=== PATIENT | male | born 1965 | race Hispanic/Latino ===

== ENCOUNTER 2017-02-09 15:47 | Emergency (ER) | payer MEDICAID ==
[2017-02-09 15:50] VITALS: BP 125/88; PULSE 100; RESP 20; TEMP 97.2; O2SAT 100
--- NOTE | 2017-02-09 16:39 | C.PDOC ---
History Of Present Illness 52 year old male presents to he ED requesting alcohol detox. Patient admits daily alcohol use. He has no physical complaints at this time. States that he was at [facility] earlier today for possible seizure but eloped prior to any treatment or evaluation. Chief Complaint (Nursing): Medical Clearance History Per: Patient History/Exam Limitations: no limitations Reports Recently: Seen In ED Past Medical History Reviewed: Historical Data, Nursing Documentation, Vital Signs Vital Signs: Last Vital Signs Temp 97.2 F L 02/09/17 15:49 Pulse 100 H 02/09/17 15:49 Resp 20 02/09/17 15:49 BP 125/88 02/09/17 15:49 Pulse Ox 100 02/09/17 16:39 - Medical History PMH: Anxiety, Depression, HIV, Seizures Family History: States: No Known Family Hx - Social History Hx Alcohol Use: Yes Hx Substance Use: No Review Of Systems Psych: Positive for: Withdrawal, Other (Alcohol abuse ) Physical Exam - Physical Exam Appears: Non-toxic, No Acute Distress Skin: Normal Color, Warm, Dry Head: Atraumatic, Normacephalic Eye(s): bilateral: Normal Inspection, PERRL, EOMI Oral Mucosa: Moist Cardiovascular: Rhythm Regular, No Murmur Respiratory: Normal Breath Sounds (clear to ascultation bilaterally ) Gastrointestinal/Abdominal: Soft, No Tenderness Extremity: No Pedal Edema, No Deformity Neurological/Psych: Oriented x3, Normal Speech ED Course And Treatment - Laboratory Results Result Diagrams: 02/09/17 16:58 O2 Sat by Pulse Oximetry: 100 Disposition - Disposition Referrals: [facility] Cristina Galvez, [Non-Staff] - Disposition: HOME/ ROUTINE Disposition Time: 17:20 Condition: GOOD Additional Instructions: Thank you for letting us take care of you today. Your provider was Dr. Coreas. The emergency medical care you received today was directed at your acute symptoms. If you were prescribed any medication, please fill it and take as directed. It may take several days for your symptoms to resolve. Return to the Emergency Department if your symptoms worsen, do not improve, or if you have any other problems. Please contact your doctor or call one of the physicians/clinics you have been referred to that are listed on the Patient Visit Information form that is included in your discharge packet. Bring any paperwork you were given at discharge with you along with any medications you are taking to your follow up visit. Our treatment cannot replace ongoing medical care by a primary care provider (PCP) outside of the emergency department. Thank you for allowing the [facility] team to be part of your care today. Cut down on the amount of alcohol you consume daily. Follow up with your doctor in 2-3 days for re-evaluation and further management. Instructions: Abuse of Alcohol (ED) Forms: [employer] (Ukrainian) - Clinical Impression Clinical Impression: Alcohol intoxication - Scribe Statement The provider has reviewed the documentation as recorded by the Gris Aguiar Provider Attestation: All medical record entries made by the Huongibe were at my direction and personally dictated by me. I have reviewed the chart and agree that the record accurately reflects my personal performance of the history, physical exam, medical decision making, and the department course for this patient. I have also personally directed, reviewed, and agree with the discharge instructions and disposition.
[2017-02-09 17:05] LABS: BASO % 0.4 % (0.0-2.0); EOS # 0.1 K/uL (0.0-0.7); EOS % 1.9 % (0.0-4.0); HEMATOCRIT 43.1 % (35.0-51.0); LYMPH # 1.8 K/uL (1.0-4.3); LYMPH % 40.5 % (20.0-40.0); MEAN CORPUSCULAR HEMOGLOBIN 31.7 pg (27.0-31.0); MEAN CORPUSCULAR HGB CONC 34.1 g/dL (33.0-37.0); MEAN PLATELET VOLUME 6.9 fL (7.2-11.7); MONO # 0.5 K/uL (0.0-0.8); MONO % 11.6 % (0.0-10.0); NRBC % 0.1 % (0.0-2.0); RED CELL DISTRIBUTION WIDTH 14.5 % (11.5-14.5); WHITE BLOOD COUNT 4.5 K/uL (4.8-10.8)
--- NOTE | 2017-02-09 17:18 | CT ---
PROCEDURE: CT HEAD WITHOUT CONTRAST. HISTORY: r/o ICH COMPARISON: None available. TECHNIQUE: Axial computed tomography images were obtained through the head/brain without intravenous contrast. Radiation dose: Total exam DLP = 1037.69 mGy-cm. This CT exam was performed using one or more of the following dose reduction techniques: Automated exposure control, adjustment of the mA and/or kV according to patient size, and/or use of iterative reconstruction technique. FINDINGS: HEMORRHAGE: No intracranial hemorrhage. BRAIN: No mass effect or edema. Mild volume loss is noted. VENTRICLES: Unremarkable. No hydrocephalus. CALVARIUM: Unremarkable. PARANASAL SINUSES: Unremarkable as visualized. No significant inflammatory changes. MASTOID AIR CELLS: Unremarkable as visualized. No inflammatory changes. OTHER FINDINGS: None. IMPRESSION: Normal CT of the Head.
== END 2017-02-09 17:36 | disposition home or self-care (01) ==
LOC: C.ER 15:47
DX: F10.120 Alcohol abuse with intoxication, uncomplicated (principal); Y90.9 Presence of alcohol in blood, level not specified

== ENCOUNTER 2017-02-12 22:02 | Emergency (ER) | payer MEDICAID ==
[2017-02-12 22:54] LABS: BASO # 0.1 K/uL (0.0-0.2); BASO % 1.8 % (0.0-2.0); EOS # 0.1 K/uL (0.0-0.7); HEMATOCRIT 38.7 % (35.0-51.0); LYMPH # 1.4 K/uL (1.0-4.3); LYMPH % 41.4 % (20.0-40.0); MEAN CELL VOLUME 93.4 fL (80.0-94.0); MEAN CORPUSCULAR HEMOGLOBIN 31.9 pg (27.0-31.0); MEAN CORPUSCULAR HGB CONC 34.2 g/dL (33.0-37.0); MEAN PLATELET VOLUME 7.1 fL (7.2-11.7); MONO # 0.4 K/uL (0.0-0.8); MONO % 12.2 % (0.0-10.0); RED CELL DISTRIBUTION WIDTH 14.3 % (11.5-14.5); WHITE BLOOD COUNT 3.5 K/uL (4.8-10.8)
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
[2017-02-12 23:04] LABS: CHLORIDE 100 mmol/L (98-107); POTASSIUM 4.5 mmol/L (3.6-5.2); SODIUM 139 mmol/L (132-148)
[2017-02-12 23:06] LABS: GFR AFRICAN-AMERICAN > 60
[2017-02-12 23:07] LABS: ALB/GLOB RATIO 1.3 (1.0-2.1); ALKALINE PHOSPHATASE 145 U/L (38-126); ALT/SGPT 227 U/L (21-72); AST/SGOT 373 U/L (17-59); BILIRUBIN,TOTAL 0.7 mg/dL (0.2-1.3); BLOOD UREA NITROGEN 5 mg/dL (9-20); CARBON DIOXIDE 21 mmol/L (22-30); GLUCOSE,RANDOM 78 mg/dL (75-110)
[2017-02-12 23:24] LABS: ALCOHOL SERUM 478 mg/dl (0-10)
[2017-02-13 00:33] LABS: RBC URINE < 1 /hpf (0-3); URINE BILIRUBIN NEGATIVE (NEGATIVE); URINE BLOOD NEGATIVE (NEGATIVE); URINE COLOR Straw (YELLOW); URINE GLUCOSE (UA) NORMAL (Normal); URINE KETONE NEGATIVE (NEGATIVE); URINE LEUKOCYTE ESTERASE NEG Leu/uL (Negative); URINE PROTEIN NEGATIVE (NEGATIVE); URINE UROBILINOGEN NORMAL mg/dL (0.2-1.0)
[2017-02-13 07:56] VITALS: PULSE 91; O2SAT 99
[2017-02-13 10:56] VITALS: BP 142/97; RESP 20; TEMP 97.9
--- NOTE | 2017-02-14 11:54 | CARD ---
APPROVED REPORT EKG Measurement Heart [id number] <Conclusion> Normal sinus rhythm Possible Left atrial enlargement Borderline ECG
== END 2017-02-13 12:06 | disposition home or self-care (01) ==
LOC: C.ER 22:02
DX: F10.129 Alcohol abuse with intoxication, unspecified (principal); Y90.8 Blood alcohol level of 240 mg/100 ml or more; R45.851 Suicidal ideations

== ENCOUNTER 2017-03-19 01:39 | Emergency (ER) | payer MEDICAID ==
[2017-03-19 01:56] VITALS: BP 116/76; PULSE 110; RESP 18; TEMP 98; O2SAT 96
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
== END 2017-03-19 03:10 | disposition left against medical advice (07) ==
LOC: SUPCPDRO 01:39 → C.ER 01:39
DX: S01.81XA Laceration without foreign body of other part of head, initial encounter (principal); Y04.0XXA Assault by unarmed brawl or fight, initial encounter

== ENCOUNTER 2017-05-17 02:05 | Emergency (ER) | payer MEDICAID ==
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
[2017-05-17 04:14] VITALS: BP 110/70; PULSE 85; RESP 18; TEMP 98.4
[2017-05-17 06:55] VITALS: O2SAT 96
== END 2017-05-17 04:14 | disposition home or self-care (01) ==
LOC: C.ER 02:05
DX: F10.129 Alcohol abuse with intoxication, unspecified (principal); Y90.9 Presence of alcohol in blood, level not specified

== ENCOUNTER 2017-05-18 11:12 | Emergency (ER) | payer MEDICAID ==
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
[2017-05-18 12:49] LABS: BASO # 0.1 K/uL (0.0-0.2); EOS # 0.2 K/uL (0.0-0.7); EOS % 2.7 % (0.0-4.0); HEMOGLOBIN 12.8 g/dL (12.0-18.0); LYMPH # 2.5 K/uL (1.0-4.3); LYMPH % 42.3 % (20.0-40.0); MEAN CELL VOLUME 90.1 fL (80.0-94.0); MEAN CORPUSCULAR HEMOGLOBIN 31.5 pg (27.0-31.0); MEAN CORPUSCULAR HGB CONC 34.9 g/dL (33.0-37.0); MEAN PLATELET VOLUME 7.1 fL (7.2-11.7); MONO # 0.5 K/uL (0.0-0.8); MONO % 8.5 % (0.0-10.0); NEUT # 2.7 K/uL (1.8-7.0); NEUT % 45.5 % (50.0-75.0); RBC 4.07 Mil/uL (4.40-5.90); RED CELL DISTRIBUTION WIDTH 14.1 % (11.5-14.5); WHITE BLOOD COUNT 5.9 K/uL (4.8-10.8)
[2017-05-18 12:56] LABS: PROTHROMBIN TIME 11.2 SECONDS (9.7-12.2)
[2017-05-18 13:12] LABS: BARBITURATES, UR NEGATIVE (NEGATIVE); OPIATES, UR NEGATIVE (NEGATIVE); PHENCYCLIDINE, UR NEGATIVE (NEGATIVE)
[2017-05-18 13:14] LABS: BENZODIAZEPINES, UR POSITIVE (NEGATIVE)
[2017-05-18 13:22] LABS: ALB/GLOB RATIO 1.2 (1.0-2.1); ALBUMIN 4.3 g/dL (3.5-5.0); ALT/SGPT 37 U/L (21-72); AST/SGOT 51 U/L (17-59); BLOOD UREA NITROGEN 10 mg/dL (9-20); CALCIUM 8.7 mg/dl (8.6-10.4); GFR AFRICAN-AMERICAN > 60; GFR NON-AFRICAN AMERICAN > 60
[2017-05-18 13:33] LABS: CK-MB 0.77 ng/mL (0.0-3.38)
[2017-05-18 13:34] VITALS: RESP 18
--- NOTE | 2017-05-18 13:35 | RAD ---
PROCEDURE: CHEST RADIOGRAPH, 1 VIEW HISTORY: ?syncope COMPARISON: None available. FINDINGS: LUNGS: Clear. PLEURA: No pneumothorax or pleural fluid seen. CARDIOVASCULAR: Normal. OSSEOUS STRUCTURES: No significant abnormalities. VISUALIZED UPPER ABDOMEN: Normal. OTHER FINDINGS: None. IMPRESSION: No active disease.
--- NOTE | 2017-05-18 13:48 | CT ---
PROCEDURE: CT HEAD WITHOUT CONTRAST. HISTORY: ? syncope COMPARISON: 03/19/2017 TECHNIQUE: Axial computed tomography images were obtained through the head/brain without intravenous contrast. Radiation dose: Total exam DLP = 874.52 mGy-cm. This CT exam was performed using one or more of the following dose reduction techniques: Automated exposure control, adjustment of the mA and/or kV according to patient size, and/or use of iterative reconstruction technique. FINDINGS: HEMORRHAGE: No intracranial hemorrhage. BRAIN: No mass effect or edema. Mild atrophy. No evidence of infarct. VENTRICLES: No hydrocephalus. Incidental cavum septum pellucidum. CALVARIUM: Unremarkable. PARANASAL SINUSES: Small sphenoid retention cyst/polyp. MASTOID AIR CELLS: Unremarkable as visualized. No inflammatory changes. OTHER FINDINGS: None. IMPRESSION: No intracranial mass, hemorrhage or evidence of acute infarct. Mild atrophy. Sphenoid retention cyst/polyp.
[2017-05-18 15:29] VITALS: BP 112/68; PULSE 84; TEMP 98.1
[2017-05-18 15:33] VITALS: O2SAT 95
== END 2017-05-18 15:42 | disposition home or self-care (01) ==
LOC: C.ER 11:12
DX: F10.129 Alcohol abuse with intoxication, unspecified (principal); Y90.8 Blood alcohol level of 240 mg/100 ml or more

== ENCOUNTER 2018-02-03 08:05 | Emergency (ER) | payer MEDICAID ==
[2018-02-03 08:22] VITALS: TEMP 98.1
--- NOTE | 2018-02-03 09:32 | C.PDOC ---
History Of Present Illness 52-year-old male, presents to the emergency department with complaints of an itchy rash diffusely on all four extremities ongoing for the past three days. Patient denies nausea/vomiting, numbness/weakness, known allergens or any other associated symptoms. No other complaints at this time. <Shasha Cardozo - Last Filed: 02/06/18 08:41> <Laney Jeffery - Last Filed: 02/03/18 19:02> History Per: Patient History/Exam Limitations: no limitations <Shasha Cardozo - Last Filed: 02/06/18 08:41> Time Seen by Provider: 02/03/18 08:35 Chief Complaint (Nursing): Abnormal Skin Integrity Past Medical History Vital Signs: Last Vital Signs Temp 98.1 F 02/03/18 08:17 Pulse 101 H 02/03/18 10:00 Resp 20 02/03/18 10:00 BP 124/73 02/03/18 10:00 Pulse Ox 99 02/03/18 14:32 <Laney Jeffery M - Last Filed: 02/03/18 19:02> Reviewed: Historical Data, Nursing Documentation, Vital Signs Vital Signs: Last Vital Signs Temp 98.1 F 02/03/18 08:17 Pulse 120 H 02/03/18 08:17 Resp 18 02/03/18 08:17 BP 118/84 02/03/18 08:17 Pulse Ox 99 02/03/18 08:17 - Medical History PMH: Anxiety, Depression, HIV, HTN Family History: States: No Known Family Hx - Social History Hx Alcohol Use: Yes Hx Substance Use: No - Immunization History Hx Tetanus Toxoid Vaccination: No Hx Influenza Vaccination: No Hx Pneumococcal Vaccination: No <Shasha Cardozo - Last Filed: 02/06/18 08:41> Review Of Systems Constitutional: Negative for: Fever, Chills Respiratory: Negative for: Cough, Shortness of Breath Skin: Positive for: Rash <Shasha Cardozo - Last Filed: 02/06/18 08:41> Physical Exam - Physical Exam Appears: Non-toxic, No Acute Distress Skin: Warm, Dry, Rash (scattered papular rash with excoriations to B/L groins. ) Head: Atraumatic Eye(s): bilateral: Normal Inspection Nose: Normal Oral Mucosa: Moist Lips: Normal Appearing Neck: Normal ROM Cardiovascular: Rhythm Regular, No Murmur Respiratory: Normal Breath Sounds, No Accessory Muscle Use Extremity: Normal ROM, No Deformity Neurological/Psych: Oriented x3, Normal Speech <Shasha Cardozo - Last Filed: 02/06/18 08:41> ED Course And Treatment O2 Sat by Pulse Oximetry: 99 Pulse Ox Interpretation: Normal (RA) <Shasha Cardozo - Last Filed: 02/06/18 08:41> Disposition <EmeliLaney ledesma Alfonso - Last Filed: 02/03/18 19:02> - Disposition Disposition Time: 09:00 <Shasha Cardozo - Last Filed: 02/06/18 08:41> - Disposition Referrals: [facility] [Outside] Disposition: HOME/ ROUTINE Condition: GOOD Additional Instructions: Follow up with the medical doctor within 1-2 days. Return if worsened. Prescriptions: DiphenhydrAMINE [Benadryl] 25 mg PO QID #28 cap Ketoconazole [Nizoral] 120 ml TP BID #1 shampoo Ketoconazole 2% Cr [Nizoral] 60 gm EXT BID #3 tube Instructions: Jock Itch Forms: [facility] (Bahraini) - Clinical Impression Clinical Impression: Tinea corporis - PA / [employer] / Resident Statement MD/DO has reviewed & agrees with the documentation as recorded. <Laney Jeffery - Last Filed: 02/03/18 19:02> - Scribe Statement The provider has reviewed the documentation as recorded by the Scribe (Davey Sherman) All medical record entries made by the Scribe were at my direction and personally dictated by me. I have reviewed the chart and agree that the record accurately reflects my personal performance of the history, physical exam, medical decision making, and the department course for this patient. I have also personally directed, reviewed, and agree with the discharge instructions and disposition. <Shasha Cardozo C - Last Filed: 02/06/18 08:41>
[2018-02-03 10:10] VITALS: BP 124/73; PULSE 101; RESP 20
[2018-02-03 14:30] VITALS: O2SAT 99
== END 2018-02-03 10:01 | disposition home or self-care (01) ==
LOC: C.ER 08:05
DX: B35.4 Tinea corporis (principal)

== ENCOUNTER 2018-02-07 12:54 | Emergency (ER) | payer MEDICAID ==
--- NOTE | 2018-02-07 13:27 | C.PDOC ---
History Of Present Illness 53 year old male with history of depression and anxiety presents to ED for psychiatric evaluation. Patient reports she is feeling depressed and takes Lexapro and Ativan for her symptoms. Patient report she is a chronic drinker and has been drinking more than usual cause of high amount of stress he is in.Patient reports he drank heavily today but will not quantify how much. Patient states he always has suicidal ideation and states he has them now. Patient reports coming up with many plans to kill himself. Patient stated, "when I commit suicide I am going to succeed." Denies any homicidal ideation, hallucinations, other drug use or psychologic issues. Time Seen by Provider: 02/07/18 13:04 History Per: Patient History/Exam Limitations: no limitations Onset/Duration Of Symptoms: Days Current Symptoms Are (Timing): Still Present Past Medical History Reviewed: Historical Data, Nursing Documentation, Vital Signs - Medical History PMH: Anxiety, Depression, HIV, HTN Denies: Diabetes, Hepatitis, Seizures, Sexually Transmitted Disease Surgical History: No Surg Hx Family History: States: No Known Family Hx - Social History Hx Alcohol Use: Yes Hx Substance Use: No - Immunization History Hx Tetanus Toxoid Vaccination: No Hx Influenza Vaccination: No Hx Pneumococcal Vaccination: No Review Of Systems Constitutional: Negative for: Fever, Chills Respiratory: Negative for: Cough, Shortness of Breath Gastrointestinal: Negative for: Nausea, Vomiting, Abdominal Pain Neurological: Negative for: Weakness, Numbness Psych: Positive for: Depression (Stated she has been drinking more than usual. Did not give specific amount. ), Suicidal ideation (Patient reports always having suicidal ideations with many plans. Stated, "When I commit suicide I am going to succeed."). Negative for: Other (Homicidal ideation, hallucinations.) Physical Exam - Physical Exam Appears: Non-toxic, No Acute Distress Skin: Warm, Dry Head: Atraumatic, Normacephalic Eye(s): bilateral: Normal Inspection Oral Mucosa: Moist Tongue: No Other (tongue fasciculations) Neck: Supple Chest: Symmetrical, No Deformity Cardiovascular: Rhythm Regular Respiratory: Normal Breath Sounds, No Rales, No Rhonchi, No Wheezing Gastrointestinal/Abdominal: Soft, No Tenderness Extremity: Normal ROM, No Other (Tremors.) Neurological/Psych: Oriented x3, Normal Motor, Normal Sensation ED Course And Treatment - Laboratory Results Result Diagrams: 02/07/18 15:00 02/07/18 15:00 O2 Sat by Pulse Oximetry: 98 (RA) Pulse Ox Interpretation: Normal Medical Decision Making Medical Decision Making: Patient medically cleared and assessed by crisis. Patient now denying SI. Will re-eval when sober. 2100- Crisis re-evaluated patient. He continues to deny SI. Ok for discharge per Dr. Gardiner. Disposition - Disposition Disposition: HOME/ ROUTINE Disposition Time: 22:00 Condition: FAIR Additional Instructions: MILAGRO POWELL, thank you for letting us take care of you today. Your provider was Laney Jeffery MD and you were treated for DEPRESSION. The emergency medical care you received today was directed at your acute symptoms. If you were prescribed any medication, please fill it and take as directed. It may take several days for your symptoms to resolve. Return to the Emergency Department if your symptoms worsen, do not improve, or if you have any other problems. Please contact your doctor or call one of the physicians/clinics you have been referred to that are listed on the Patient Visit Information form that is included in your discharge packet. Bring any paperwork you were given at discharge with you along with any medications you are taking to your follow up visit. Our treatment cannot replace ongoing medical care by a primary care provi roro outside of the emergency department. Thank you for allowing the [facility] team to be part of your care today. If you had an X-Ray or CT scan: A Radiologist will review the ED reading if any change in treatment is needed we will contact you. If you had a blood, urine, or wound culture: It will take several days for the results, if any change in treatment is needed we will contact you. If you had an STI test: It will take 48 hours for the results. Please call after 1 week if you have not heard back. Instructions: Depression, Adult (DC), Alcohol Abuse and Alcoholism (DC) Forms: [employer] (Portuguese) - Clinical Impression Clinical Impression: Alcohol intoxication, Alcohol abuse, Depression - Scribe Statement The provider has reviewed the documentation as recorded by the [employer] Cartered Provider Attestation: All medical record entries made by the [place] were at my direction and personally dictated by me. I have reviewed the chart and agree that the record accurately reflects my personal performance of the history, physical exam, medical decision making, and the department course for this patient. I have also personally directed, reviewed, and agree with the discharge instructions and disposition.
[2018-02-07 14:30] LABS: URINE BILIRUBIN NEGATIVE (NEGATIVE); URINE BLOOD 1+ (NEGATIVE); URINE CLARITY Clear (Clear); URINE COLOR Yellow (YELLOW); URINE GLUCOSE (UA) NORMAL (Normal); URINE LEUKOCYTE ESTERASE NEG Leu/uL (Negative); URINE PROTEIN NEGATIVE (NEGATIVE); URINE UROBILINOGEN NORMAL mg/dL (0.2-1.0)
[2018-02-07 14:57] LABS: BARBITURATES, UR NEGATIVE (NEGATIVE); BENZODIAZEPINES, UR NEGATIVE (NEGATIVE); OPIATES, UR NEGATIVE (NEGATIVE); PHENCYCLIDINE, UR NEGATIVE (NEGATIVE)
[2018-02-07 15:03] LABS: BASO # 0.1 K/uL (0.0-0.2); BASO % 1.4 % (0.0-2.0); EOS # 0.4 K/uL (0.0-0.7); EOS % 6.8 % (0.0-4.0); HEMOGLOBIN 15.5 g/dL (12.0-18.0); LYMPH # 2.7 K/uL (1.0-4.3); LYMPH % 49.9 % (20.0-40.0); MEAN CELL VOLUME 90.7 fL (80.0-94.0); MEAN CORPUSCULAR HEMOGLOBIN 31.8 pg (27.0-31.0); MEAN PLATELET VOLUME 6.8 fL (7.2-11.7); MONO # 0.5 K/uL (0.0-0.8); MONO % 8.5 % (0.0-10.0); NEUT # 1.8 K/uL (1.8-7.0); NEUT % 33.4 % (50.0-75.0); NRBC % 0.1 % (0.0-2.0); RBC 4.89 Mil/uL (4.40-5.90); RED CELL DISTRIBUTION WIDTH 15.1 % (11.5-14.5); WHITE BLOOD COUNT 5.5 K/uL (4.8-10.8)
[2018-02-07 15:16] LABS: ALB/GLOB RATIO 1.6 (1.0-2.1); ALBUMIN 5.3 g/dL (3.5-5.0); ALT/SGPT 43 U/L (21-72); AST/SGOT 58 U/L (17-59); BLOOD UREA NITROGEN 9 mg/dL (9-20); CALCIUM 9.4 mg/dl (8.6-10.4); GFR NON-AFRICAN AMERICAN > 60
[2018-02-07 22:26] VITALS: BP 129/73; PULSE 86; RESP 22; TEMP 98.7
[2018-02-07 22:28] VITALS: O2SAT 98
== END 2018-02-07 22:48 | disposition home or self-care (01) ==
LOC: C.ER 12:54
DX: F10.129 Alcohol abuse with intoxication, unspecified (principal); F32.9 Major depressive disorder, single episode, unspecified; I10 Essential (primary) hypertension